=== PATIENT | male | born 1950 | race Caucasian/White ===

== ENCOUNTER → 2017-03-03 | Outpatient (CLI) | payer MEDICARE | END | disposition home or self-care (01) | LOC: CVU 13:21 | PROVIDERS: ATTEND Internal Medicine Cardiovascular Disease | DX: I11.9 Hypertensive heart disease without heart failure (principal); I25.10 Atherosclerotic heart disease of native coronary artery without angina pectoris; I08.1 Rheumatic disorders of both mitral and tricuspid valves; E78.5 Hyperlipidemia, unspecified; E11.9 Type 2 diabetes mellitus without complications; Z95.5 Presence of coronary angioplasty implant and graft | CPT/HCPCS: 93306 ==

== ENCOUNTER 2018-12-01 11:47 | Emergency (ER) | payer MEDICARE ==
[~2018-12-01] VITALS: Ht 177.8 cm; Wt 121.1 kg
[2018-12-01] MEDS ORDERED: ATROPINE SYRINGE 0.1 MG/ML, 10ML ONE (12:00)
[2018-12-01] MEDS ORDERED: EPINEPHRINE SYRINGE 0.1 MG/ML, 10ML ONE (12:00)
[2018-12-01] MEDS ORDERED: CODE BLUE RESPONSE XX ONE (12:18)
[2018-12-01] MEDS ORDERED: ATROPINE SYRINGE 0.1 MG/ML, 10ML IVPush ONE (12:30)
[2018-12-01] MEDS ORDERED: PLEASE ENTER ALLERGIES MC SCH (12:30)
[2018-12-01] MEDS ORDERED: EPINEPHRINE 1 MG/ML, 1ML IVPush ONE (12:30)
--- NOTE | 2018-12-01 13:02 | NUR ---
LATE ENTRY - PT ARRIVED BY EMS FOR WITNESSED ARREST AT 1105. PER EMS, PT'S S/O (ELLEN JACINTO) WATCHED PT COLAPSE IN KITCHEN, NO PULSES UPON EMS ARRIVAL. PER EMS THEY INITIATED CPR AND ADMINISTERED 6 ROUNDS OF EPI. PT REMAINED IN PEA THROUGHOUT TRANSPORT W/ OCCASIONAL AGONAL RESPIRATIONS. UPON ARRIVAL AT 1147, PT PRESENTED WITH WEAK/THREADY PULSES THAT DETERIORATED TO PEA AT 1154. CPR WAS INITIATED AT THAT TIME, ATROPINE AND EPINEPHRINE WERE ADMINISTERED. AFTER 2 MINUTES OF CPR, THE CODE TEAM PERFORMED A PULSE CHECK AND FOUND THE PT TO BE IN PEA. DR. BAUTISTA PERFORMED A BEDSIDE ULTRASOUND FOR CARDIAC FUNCTION AND PRONOUNCED THE PT AT 1157. PT'S S/O AND S/O'S DAUGHTER (KELLY HIDALGO) MADE AWARE UPON THEIR ARRIVAL TO THE ED AT APPROXIMATELY 1205. [facility] CONTACTED AT 1205, DENIED A [employer] PRESS OPERATOR'S CASE BY ARLENE CRAWFORD AT THE CT'S OFFICE AT 1230. PER PT'S S/O, PT HAS A SISTER THAT IS HIS LEGAL NEXT OF KIN BY THE NAME OF BUCK MARTINA. PHONE NUMBER: [phone]. THIS INDIVIDUAL IS DEAF AND IS ONLY ABLE TO BE CONTACTED BY TEXT AT THIS NUMBER. ATTEMPTED TO TEXT THIS NUMBER ASKING HER TO REACH OUT TO SPEAK WITH HOSPITAL STAFF REGARDING HER BROTHER AND AM AWAITING RETURN CORRESPONDENCE. HOME ADDRESS FOR BUCK MACK - [facility] [address]
--- NOTE | 2018-12-01 13:42 | NUR ---
[facility] REFERRAL #[id number], REP JOSE BLACKBURN IN CASE # [id number], ARLENE CRAWFORD
[2018-12-01] MEDS ORDERED: METO50TA82 PO (13:57)
[2018-12-01] MEDS ORDERED: CLOP75TA PO (13:57)
[2018-12-01] MEDS ORDERED: HYDR25TA6 PO (13:57)
[2018-12-01] MEDS ORDERED: LISI-170 PO (13:57)
[2018-12-01] MEDS ORDERED: ASPI-496 PO (13:57)
== END 2018-12-01 14:10 | disposition expired ==
LOC: ED 12:06
DX: I46.9 Cardiac arrest, cause unspecified (principal); I25.2 Old myocardial infarction; E11.22 Type 2 diabetes mellitus with diabetic chronic kidney disease; N18.6 End stage renal disease; Z99.2 Dependence on renal dialysis
CPT/HCPCS: 92950; 99285; J0461